=== PATIENT | male | born 1990 | race Caucasian/White ===

== ENCOUNTER 2017-12-20 20:43 | Emergency (ER) | payer OTHER ==
[~2017-12-20] VITALS: Ht 170.2 cm; Wt 63.5 kg
[2017-12-20 20:50] VITALS: BP 144/48
[2017-12-20] MEDS ORDERED: PENICILLIN V P500 MG PO (21:04)
[2017-12-20] MEDS ORDERED: IBUPROFEN 600600 M1 PO (21:05)
== END 2017-12-20 21:12 | disposition home or self-care (01) ==
LOC: M.ERS 20:43
DX: K04.7 Periapical abscess without sinus (principal); Z91.018 Allergy to other foods